=== PATIENT | male | born 1965 | race Caucasian/White ===

== ENCOUNTER → 2016-11-08 | Outpatient (CLI) | payer BC ==
[~2016-11-08] MED LIST: CLARITIN D PO; DILT240C74 PO; LORA5TAB3 PO; LOSA1TAB PO; LOSA1TAB38 PO; LSX20 PO
== END | disposition home or self-care (01) ==
LOC: C.CPL 12:21
PROVIDERS: ATTEND Surgery
DX: R91.8 Other nonspecific abnormal finding of lung field (principal)

== ENCOUNTER → 2016-11-22 | Day surgery (SDC) | payer BC, OTHER ==
[2016-11-11 15:32] VITALS: BMI 41.0
[~2016-11-22] VITALS: Ht 188 cm; Wt 145.4 kg
[~2016-11-22] MED LIST changes: +ATROPINE SULFATE 0.1 MG/ML 5ML SYR IV PRN; +DEXAMETHASONE SOD INJ 4 MG/ML VIAL ONE; +EpHEDrine SULFATE 50MG/5ML SYR ONE; +EpHEDrine SULFATE INJ 50 MG/ML AMP IV PRN; +FENTANYL CITRATE INJ 50 MCG/1 ML 2 ML VIAL ONE; +LACTATED RINGER'S 1000ML 1,000 ML IV SCH; +LIDOCAINE HCL 2% 2 ML VIAL (20MG/ML) ONE; -LORA5TAB3 PO; -LOSA1TAB PO; +MIDAZOLAM HCL 1 MG/ML 2ML VIAL ONE; +NEOSTIGMINE METHYLSULFATE 5 MG/5 ML SYR ONE; +ONDANSETRON INJ 2 MG/ML 2 ML VIAL ONE; +PROPOFOL IV EMULSION 10 MG/ML 20 ML VIAL IV ONE; +SUCCINYLCHOLINE CHLORIDE 20 MG/ML 10 ML VIAL IV ONE
[2016-11-22 07:07] VITALS: BP 144/92; PULSE 77; TEMP 37; O2SAT 96; Ht 188 cm; Wt 145.4 kg
--- NOTE | 2016-11-22 07:19 | History & Physical Bridge Note ---
H&P Re-Evaluation Bridge Note: I have examined the patient, reviewed the History & Physical and in the interval since the performance of the History & Physical I have noted the following changes of clinical significance: No changes noted
--- NOTE | 2016-11-22 08:14 | Discharge Instructions ---
Discharge Instructions Visit Reason for Visit: Broncholiths, Pulmonary Nodule Discharge Discharge Diagnosis / Problem: Broncholiths, Pulmonary Nodule Discharge Goals Goal(s): Learn about illness Activity Recommendations Activity Limitations: resume your previous activity (in 24 hours) Anesthesia . Post Anesthesia Instructions: If you have had General Anesthesia or IV Sedation: * Do not drive today. * Resume driving when surgeon permits. * Do not make important decisions or sign legal documents today. * Call surgeon for: 1. Temperature elevations greater than 101 degrees F. 2. Uncontrollable pain. 3. Excessive bleeding. 4. Persistent nausea and vomiting. 5. Medication intolerance (nausea, vomiting or rash). * For nausea and vomiting use only clear liquids such as: tea, soda, bouillon until nausea subsides, then gradually increase diet as tolerated. * If you have any concerns or questions, call your surgeon's office. If physician is unavailable and it is an emergency, call 911 or go to the nearest emergency room. . Instructions / Follow-Up Instructions / Follow-Up 1. You may cough up some blood. Call physician if excessive amount noted. 2. Keep your scheduled appointment with Dr. Blevins on December 03 @ 11:45. Diet Recommendations Recommended Home Diet: resume previous diet Procedures Procedures Performed: Endobronchial Ultrasound; Navigational Bronchoscopy with Biopsies Pending Studies Studies pending at discharge: no Medical Emergencies . Who to Call and When: Medical Emergencies: If at any time you feel your situation is an emergency, please call 911 immediately. . Non-Emergent Contact Non-Emergency issues call your: Surgeon Call Non-Emergent contact if: you have a fever . . "Provider Documentation" section prepared by Didier Kendall.
--- NOTE | 2016-11-22 09:11 | DIAGNOSTIC IMAGING REPORT ---
CHEST 1 VIEW FRONTAL CLINICAL HISTORY: NAVIGATIONAL BRONCH COMPARISON STUDY: Chest CT 08/20/2016. FINDINGS: Total fluoroscopy time was 2 minutes and 34 seconds. A single image of the left chest was submitted. A bronchoscope is identified within the left lower lobe. IMPRESSION: Fluoroscopy provided for bronchoscopy. Electronically signed by: Lorne Manriquez M.D. 11/22/2016 9:10 AM Dictated Date/Time: 11/22/2016 9:09 AM
--- NOTE | 2016-11-22 09:36 | DIAGNOSTIC IMAGING REPORT ---
SINGLE VIEW CHEST CLINICAL HISTORY: Status post bronchoscopy. FINDINGS: An AP, portable, upright chest radiograph is compared to study dated 01/07/2014 and correlated with chest CT dated 08/20/2016. The examination is degraded by portable technique, large body habitus, and patient rotation. The heart is enlarged. The pulmonary vasculature is noncongested. There is hilar adenopathy and calcifications identified. Numerous calcified granulomas and pulmonary nodules are again seen. There are low lung lungs and bibasilar atelectasis. Linear airspace opacities in the upper lobes bilaterally, right greater than left likely represent atelectasis. No pneumothorax is seen. The skeletal structures are osteopenic. The bony thorax is grossly intact. IMPRESSION: 1. No pneumothorax is identified post procedure. 2. Cardiomegaly without radiographic evidence of congestive failure. 3. Low lung volumes and bibasilar atelectasis. 4. Hilar adenopathy, as well as numerous small pulmonary nodules and calcified granulomas are similar to previous. This was better characterized on recent chest CT scans. Electronically signed by: Guru Alexander M.D. 11/22/2016 9:34 AM Dictated Date/Time: 11/22/2016 9:31 AM
--- NOTE | 2016-11-22 10:03 | Anesthesiology Progress Note ---
Anesthesia Post Op Note Date & Time Nov 22, 2016 at 10:04 Vital Signs Pain Intensity: 0 Vital Signs Past 12 Hours Date Time Temp Pulse Resp B/P Pulse Ox O2 Delivery O2 Flow Rate FiO2 11/22/16 10:00 36.4 61 20 116/70 92 Room Air 11/22/16 09:50 69 21 116/76 94 Room Air 11/22/16 09:40 65 19 123/75 100 Mask 10 11/22/16 09:30 67 23 122/78 100 Mask 10 11/22/16 09:24 36.1 70 20 126/85 100 Mask 10 11/22/16 07:07 37 77 20 144/92 96 Room Air Notes Mental Status: alert / awake / arousable, participated in evaluation Pt Amnestic to Procedure: Yes Nausea / Vomiting: adequately controlled Pain: adequately controlled Airway Patency, RR, SpO2: stable & adequate BP & HR: stable & adequate Hydration State: stable & adequate Anesthetic Complications: no major complications apparent
[2016-11-22 10:05] VITALS: BP 128/72; PULSE 66; TEMP 36.5; O2SAT 98
[2016-11-22 10:35] VITALS: BP 122/73; PULSE 62; TEMP 36.4; O2SAT 94
[2016-11-22 11:05] VITALS: BP 127/73; PULSE 63; TEMP 36.5; O2SAT 95
--- NOTE | 2016-11-22 16:05 | OPERATIVE REPORT ---
DATE OF OPERATION: 11/22/2016 PREOPERATIVE DIAGNOSIS: 1. Mediastinal adenopathy with compression of the airways. 2. Nodule left upper lobe. POSTOPERATIVE DIAGNOSIS: Same. PROCEDURE: 1. Endobronchial ultrasound with biopsy. 2. Navigational bronchoscopy with brushing, biopsy and forceps biopsy of left upper lobe mass. SURGEON: Dr. Blevins. OUTSOLE SPLICER: Jose Kendall PA-C. ANESTHESIA: General anesthesia endotracheal intubation. INDICATION FOR PROCEDURE AND FINDINGS: Pankaj Valdez is a 51-year-old man who has been bothered by a persistent cough for the last 3-4 years. 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 This cough that he has can sometimes be debilitating. He states that he coughed so much that he gets to the point where he may pass out. It appeared to me that he had compression from these large airway, especially in the right lung field and distal trachea, but also he may have a broncholith. I had a long talk with the patient and his . I have explained the possibility that we may offer him a procedure where we do a mediastinal and hilar lymphadenectomy. We are going to make sure that we are not dealing with any type of neoplastic process. On 11/22/2016 the patient underwent an uncomplicated endobronchial ultrasound and navigational bronchoscopy. I did biopsy of this mass in the left upper lobe and we looked like we were right in it with our radial ultrasound, but the preliminary rapid onsite evaluations did not show any abnormalities. There were granulomas in his lymph nodes. He tolerated it well. PROCEDURE: The patient was brought to the operating room and placed in supine position. General anesthesia was induced and endotracheal intubation was performed. After appropriate timeout had been given and prophylactic antibiotics given, the endobronchial ultrasound scope was placed. The patient had some compression of the distal trachea on the right and also the right mainstem bronchus and he did have a broncholith which was penetrating the medial aspect of the right mainstem bronchus. I biopsied this with forceps. I then did a washing to the right and sent this for fungal AFB smear culture. I then using the endobronchial ultrasound I then biopsied the level 7 node multiple times as well as the left level 11 and right level 4. We then got the results of some of the rapid on site evaluation and we definitely had granulomas so we stopped here. Using the navigational bronchoscopy, I then went out to this right upper lobe mass and got right out to it. I was quite happy with the radial ultrasound. We were about 1 cm away and pointed directly at it. I then used brushings and then needle biopsies of aspiration and the forceps biopsy with touch preps. I did 3 different approaches with each. I then did washings of this for cytology and for AFB and fungal smears and cultures also. We had very little in the way of bleeding. We irrigated out both airways. I then slowly removed the bronchoscope and saw no evidence of bleeding. He tolerated it well. I attest to the content of the Intraoperative Record and any orders documented therein. Any exceptio ns are noted below.
== END | disposition home or self-care (01) ==
LOC: C.ACU 06:48
PROVIDERS: ATTEND Surgery
DX: R91.1 Solitary pulmonary nodule (principal); J84.10 Pulmonary fibrosis, unspecified; R05 Cough; E78.5 Hyperlipidemia, unspecified; R59.0 Localized enlarged lymph nodes; R73.03 Prediabetes; G47.30 Sleep apnea, unspecified; M79.89 Other specified soft tissue disorders

== ENCOUNTER → 2017-01-28 | Day surgery (SDC) | payer BC ==
[2017-01-23 08:06] VITALS: BMI 41.0
[~2017-01-28] VITALS: Ht 188 cm; Wt 145.4 kg
[~2017-01-28] MED LIST changes: -ATROPINE SULFATE 0.1 MG/ML 5ML SYR IV PRN; -DEXAMETHASONE SOD INJ 4 MG/ML VIAL ONE; -EpHEDrine SULFATE 50MG/5ML SYR ONE; -EpHEDrine SULFATE INJ 50 MG/ML AMP IV PRN; -FENTANYL CITRATE INJ 50 MCG/1 ML 2 ML VIAL ONE; -LACTATED RINGER'S 1000ML 1,000 ML IV SCH; -NEOSTIGMINE METHYLSULFATE 5 MG/5 ML SYR ONE; +SODIUM CHLORIDE 0.9% 500ML 500 ML IV ONE; -SUCCINYLCHOLINE CHLORIDE 20 MG/ML 10 ML VIAL IV ONE
[2017-01-28 09:41] VITALS: Ht 188 cm; Wt 145.4 kg
--- NOTE | 2017-01-28 10:33 | Endo History and Physical ---
History & Physical Date of Service: Jan 28, 2017. Chief Complaint: SCREENING Referring Physician: DR LOPEZ History of Present Illness 51 yo CM who presents for screening colonoscopy. Past Medical History Fractures, Sleep Apnea, Hypertension Past Surgical History Hx Cardiac Surgery: No Hx Internal Defibrillator: No Hx Pacemaker: No Hx Abdominal Surgery: No Hx of Implantable Prosthesis: No Hx Post-Op Nausea and Vomiting: No Hx Cancer Surgery: No Hx Thoracic Surgery: Yes (EBUS BRONCHOSCOPY X2) Hx Orthopedic: No Hx Urinary Tract Surgery: No Family History None Social History Smoking Status: Never Smoker Hx Substance Use: No Hx Alcohol Use: No Allergies Coded Allergies: No Known Allergies (Unverified , 01/28/17) Current Medications Reported Home Medications Medications Dose Route/Sig Max Daily Dose Days Date Category [Claritin D] 1 Tab PO DAILY PRN 01/23/17 Reported Furosemide 20 Mg Tab 40 Mg PO DIRECTED PRN 10/04/15 Reported Cozaar (Losartan Potassium) 100 Mg Tab 100 Mg PO QPM 10/04/15 Reported Diltiazem Hcl Er (Diltiazem Hcl Extended Release) 240 Mg Cap 1 Tab PO QAM 10/04/15 Reported Vital Signs Weight (Kilograms): 145.45 Height (Feet): 6 Height (Inches): 2 Date Time Temp Pulse Resp B/P Pulse Ox O2 Delivery O2 Flow Rate FiO2 01/28/17 09:45 36.5 86 20 148/79 96 Room Air Physical Exam General Appearance: WD/WN, no apparent distress Respiratory/Chest: Auscultation: breath sounds normal Cardiovascular: Heart Auscultation: RRR Abdomen: Bowel Sounds: normal Inspection & Palpation: soft, non-distended, no tenderness, guarding & rebound Assessment and Plan Assessment: 51 yo CM who presents for screening colonoscopy. Plan: Proceed with colonoscopy.
--- NOTE | 2017-01-28 10:53 | Discharge Instructions ---
Endoscopy Patient Instructions Date / Procedure(s) Performed Jan 28, 2017. Colonoscopy Allergy Information Coded Allergies: No Known Allergies (Unverified , 01/28/17) Discharge Date / Findings Jan 28, 2017. Rectal polyp Internal hemorrhoids Medication Instructions OK to resume all medications today as prescribed Reported Home Medications Medications Dose Route/Sig Max Daily Dose Days Date Category [Claritin D] 1 Tab PO DAILY PRN 01/23/17 Reported Furosemide 20 Mg Tab 40 Mg PO DIRECTED PRN 10/04/15 Reported Cozaar (Losartan Potassium) 100 Mg Tab 100 Mg PO QPM 10/04/15 Reported Diltiazem Hcl Er (Diltiazem Hcl Extended Release) 240 Mg Cap 1 Tab PO QAM 10/04/15 Reported Provider Instructions Activity Restrictions - No exercising or heavy lifting for 24 hours. - Do not drink alcohol the day of the procedure. - Do not drive a car or operate machinery until the day after the procedure. - Do not make any important decisions or sign important papers in 24 hours after the procedure. Following Day: - Return to full activity which may include returning to work/school. Diet Start your diet with liquids and light foods (jello, soup, juice, toast). Then eat your usual diet if not nauseated. Treatment For Common After Affects For mild abdominal pain, bloating, or excessive gas: - Rest - Eat lightly - Lie on right side Follow-Up Information Follow-up with DR LOPEZ as scheduled Anesthesia Information What You Should Know You have had a procedure that required some medicine to reduce anxiety and discomfort. This treatment is called moderate sedation. After receiving the treatment, you may be sleepy, but you will be able to breathe on your own. The effects of the treatment may last for several hours. Follow these instructions along with Activity/Diet recommendations noted above: * Do NOT do anything where dizziness or clumsiness would be dangerous. * Rest quietly at home today, then you can be up and about tomorrow. * Have a responsible person stay with you the rest of today. * You may have had an I.V. today. If so, you may take the dressing off later today. Recommendations Call your doctor if: * Trouble breathing * Continuous vomiting for more than 24 hours * Temperature above 101 degrees * Severe abdominal pain or bloating * Pain not relieved by pain medicine ordered * There is increased drainage or redness from any incision * A large amount of rectal bleeding greater than 2-3 tablespoons. (If you had a polyp/s removed or have hemorrhoids, a small amount of blood - from the rectum is to be expected.) * You have any unanswered questions or concerns. IN THE EVENT OF A SERIOUS EMERGENCY, GO TO THE NEAREST EMERGENCY ROOM Your discharge instructions were prepared by provider Joey Little. Patient Instructions Signature Page Pankaj Valdez Patient (or Guardian) Signature/Date: I have read and understand the instructions given to me by my caregivers. Caregiver/RN/Doctor Signature/Date: The above-named patient and/or guardian has received patient instructions on this date. + Original Patient Signature Page (only) stays with chart. Please make copy for patient.
--- NOTE | 2017-01-28 10:55 | GI REPORT ---
Procedure Date: 01/28/2017 10:31 AM Procedure: Colonoscopy Indications: Screening for colorectal malignant neoplasm Medicines: Monitored Anesthesia Care Complications: No immediate complications. Estimated Blood Loss: Estimated blood loss: none. Procedure: Pre-Anesthesia Assessment: - Prior to the procedure, a History and Physical was performed, and patient medications and allergies were reviewed. The patient's tolerance of previous anesthesia was also reviewed. The risks and benefits of the procedure and the sedation options and risks were discussed with the patient. All questions were answered, and informed consent was obtained. Prior Anticoagulants: The patient has taken no previous anticoagulant or antiplatelet agents. ASA Grade Assessment: II - A patient with mild systemic disease. After reviewing the risks and benefits, the patient was deemed in satisfactory condition to undergo the procedure. After I obtained informed consent, the scope was passed under direct vision. Throughout the procedure, the patient's blood pressure, pulse, and oxygen saturations were monitored continuously. The On-site loaner was introduced through the anus and advanced to the terminal ileum. The colonoscopy was performed without difficulty. The patient tolerated the procedure well. The quality of the bowel preparation was good. The terminal ileum, ileocecal valve, appendiceal orifice, and rectum were photographed. Findings: A 5 mm polyp was found in the rectum. The polyp was sessile. The polyp was removed with a hot snare. Resection and retrieval were complete. Non-bleeding internal hemorrhoids were found during retroflexion. The hemorrhoids were small. Impression: - One 5 mm polyp in the rectum, removed with a hot snare. Resected and retrieved. - Non-bleeding internal hemorrhoids. Recommendation: - Resume previous diet. - Continue present medications. - Repeat colonoscopy for surveillance based on pathology results. - Return to primary care physician as previously scheduled. Joey Little DO 01/28/2017 10:54:46 AM This report has been signed electronically. Note Initiated On: 01/28/2017 10:31 AM I attest to the content of the Intraoperative Record and orders documented therein, exceptions below
--- NOTE | 2017-01-28 11:11 | Anesthesiology Progress Note ---
Anesthesia Post Op Note Date & Time Jan 28, 2017 at 11:10 Vital Signs Vital Signs Past 12 Hours Date Time Temp Pulse Resp B/P Pulse Ox O2 Delivery O2 Flow Rate FiO2 01/28/17 10:58 78 20 119/76 96 Room Air 01/28/17 09:45 36.5 86 20 148/79 96 Room Air Notes Mental Status: alert / awake / arousable, participated in evaluation Pt Amnestic to Procedure: Yes Nausea / Vomiting: adequately controlled Pain: adequately controlled Airway Patency, RR, SpO2: stable & adequate BP & HR: stable & adequate Hydration State: stable & adequate Anesthetic Complications: no major complications apparent Pt doing well.
[2017-01-28 11:28] VITALS: BP 150/95; PULSE 70; O2SAT 96
== END | disposition home or self-care (01) ==
LOC: C.GI 09:33
PROVIDERS: ATTEND Internal Medicine
DX: Z12.11 Encounter for screening for malignant neoplasm of colon (principal); K62.1 Rectal polyp; K64.8 Other hemorrhoids; I10 Essential (primary) hypertension; G47.33 Obstructive sleep apnea (adult) (pediatric); Z90.89 Acquired absence of other organs; Z68.41 Body mass index [BMI] 40.0-44.9, adult

== ENCOUNTER → 2017-09-15 | Outpatient (CLI) | payer BC ==
[~2017-09-15] MED LIST changes: -LIDOCAINE HCL 2% 2 ML VIAL (20MG/ML) ONE; -MIDAZOLAM HCL 1 MG/ML 2ML VIAL ONE; -ONDANSETRON INJ 2 MG/ML 2 ML VIAL ONE; -PROPOFOL IV EMULSION 10 MG/ML 20 ML VIAL IV ONE; -SODIUM CHLORIDE 0.9% 500ML 500 ML IV ONE
--- NOTE | 2017-09-15 14:59 | DIAGNOSTIC IMAGING REPORT ---
(RENAL)RETROPERITON COMP CLINICAL HISTORY: 52 years-old Male presenting with N28.1 Renal cyst, [id number]. TECHNIQUE: Real-time grayscale and limited color Doppler ultrasound imaging of the kidneys and bladder was performed. COMPARISON: None. FINDINGS: Right kidney: Normal echogenicity. Right kidney measures 12.2 cm. No hydronephrosis. Hypoechoic to anechoic lesions suggestive of cysts. Evaluation limited due to patient body habitus. Left kidney: Normal echogenicity. Left kidney measures 12.1 cm. No hydronephrosis. No convincing evidence of calculus or mass. Bladder: No bladder wall thickening. Bilateral ureteral jets present. Other: Prostatomegaly with the prostate measuring 4.9 x 4.7 x 6.4 cm. IMPRESSION: 1. Few right renal cysts. Evaluation limited by patient body habitus. If there is clinical concern, further violation with contrast-enhanced CT or MR could be obtained. 2. No hydronephrosis. 3. Prostatomegaly. Electronically signed by: Wai Schumacher M.D. 09/15/2017 2:58 PM Dictated Date/Time: 09/15/2017 2:56 PM
== END | disposition home or self-care (01) ==
LOC: C.ULTR 14:21
PROVIDERS: ATTEND Internal Medicine
DX: N28.1 Cyst of kidney, acquired (principal); N40.0 Benign prostatic hyperplasia without lower urinary tract symptoms